=== PATIENT | male | born 1970 | race Caucasian/White ===

== ENCOUNTER 2018-07-13 07:16 | Observation (INO) | payer BC, OTHER ==
[~2018-07-13] VITALS: Ht 170.2 cm; Wt 68.4 kg
[2018-07-13] MEDS ORDERED: ASPIRIN 81 MG TABLET CHEW PO ONE (07:30)
[2018-07-13] MEDS ORDERED: SODIUM CHLORIDE FLUSH 10ML SYR IVF ONE (07:30)
[2018-07-13] MEDS ORDERED: NITROGLYCERIN SINGLE TAB 0.4 MG SL PRN (07:30)
[2018-07-13] MEDS ORDERED: ASPIRIN 81 MG TABLET CHEW ONE (07:32)
[2018-07-13] MEDS ORDERED: NITROGLYCERIN SINGLE TAB 0.4 MG SL ONE (07:32)
[2018-07-13 07:50] LABS: BASOPHILS # (AUTO) 0.02 x10^3/uL (0-0.1); BASOPHILS % (AUTO) 0 % (0-1); EOSINOPHILS # (AUTO) 0.21 x10^3/uL (0-0.4); EOSINOPHILS % (AUTO) 4 % (1-7); LYMPHOCYTES # (AUTO) 1.39 x10^3/uL (1-3.4); LYMPHOCYTES % (AUTO) 28 % (22-44); MD NO; MEAN CORPUSCULAR HEMOGLOBIN 30.7 pg (27.5-34.5); MEAN CORPUSCULAR HGB CONC 34.8 g/dL (33.2-36.2); MEAN CORPUSCULAR VOLUME 88.3 fL (81-97); MEAN PLATELET VOLUME 7.5 fL (7.4-10.4); MONOCYTES # (AUTO) 0.41 x10^3/uL (0.2-0.8); MONOCYTES % (AUTO) 8 % (2-9); NEUTROPHILS # (AUTO) 3.02 x10^3/uL (1.8-6.8); NEUTROPHILS % (AUTO) 60 % (42-75); PLATELET COUNT 289 x10^3/uL (130-400); RED BLOOD COUNT 4.94 x10^6/uL (4.38-5.82); RED CELL DISTRIBUTION WIDTH 13.2 % (9.4-14.8)
[2018-07-13] MEDS ORDERED: NITROGLYCERIN OINT 2%, 1GM TP ONE ×2 (07:58→08:00)
[2018-07-13] MEDS ORDERED: PLEASE ENTER ALLERGIES MC SCH (08:00)
[2018-07-13 08:01] LABS: ALBUMIN 4.1 g/dL (3.4-5.0); ANION GAP 6 mmol/L (5-15); CALCIUM 9.2 mg/dL (8.5-10.1); CHLORIDE 109 mmol/L (98-107); CREATININE 1.15 mg/dL (0.7-1.3)
[2018-07-13 08:05] LABS: ALKALINE PHOSPHATASE 52 U/L (45-117); BILIRUBIN,TOTAL 0.5 mg/dL (0.2-1.0); TOTAL PROTEIN 7.7 g/dL (6.4-8.2); TROPONIN I < 0.015 ng/mL (0.000-0.045)
[2018-07-13 08:06] LABS: ALANINE AMINOTRANSFERASE 23 U/L (12-78)
[2018-07-13] MEDS ORDERED: OMNIPAQUE 350 MG/ML, 100ML BOTTLE ONE (09:44)
[2018-07-13 11:43] VITALS: BP 104/68
[2018-07-13] MEDS ORDERED: KETOROLAC 30 MG/1 ML IV PRN (12:30)
[2018-07-13] MEDS ORDERED: ONDANSETRON 2MG/ML, 2ML IVPush PRN (12:30)
[2018-07-13] MEDS ORDERED: ACETAMINOPHEN 325 MG TABLET PO PRN (12:30)
[2018-07-13] MEDS ORDERED: GUAIFENESIN/COD200MG-20MG/10ML LIQUID PO PRN (12:30)
[2018-07-13] MEDS ORDERED: NITROGLYCERIN 0.4 MG BOTTLE (25 TABS) SL PRN (12:30)
[2018-07-13] MEDS ORDERED: DOCUSATE 100 MG CAPSULE PO PRN (12:30)
[2018-07-13] MEDS ORDERED: TRAZODONE 50MG TABLET PO PRN (12:30)
[2018-07-13] MEDS ORDERED: hydrALAzine 20 MG/ML, 1ML IVPush PRN (12:30)
[2018-07-13 13:11] VITALS: BP 114/67
[2018-07-13 14:39] LABS: TROPONIN I < 0.015 ng/mL (0.000-0.045)
[2018-07-13 15:13] VITALS: BP 101/64
[2018-07-13 15:15] VITALS: BP 103/66
[2018-07-13 15:17] VITALS: BP 119/74
[2018-07-13 20:00] VITALS: BP 122/75
[2018-07-13 20:07] LABS: TROPONIN I < 0.015 ng/mL (0.000-0.045)
[2018-07-13] MEDS ORDERED: QUETIAPINE 25MG TABLET PO SCH (21:00)
[2018-07-14 02:00] VITALS: BP 112/65
[2018-07-14 05:51] LABS: ANION GAP 5 mmol/L (5-15); CALCIUM 8.7 mg/dL (8.5-10.1); CHLORIDE 111 mmol/L (98-107)
[2018-07-14 05:52] LABS: BASOPHILS # (AUTO) 0.02 x10^3/uL (0-0.1); BASOPHILS % (AUTO) 0 % (0-1); EOSINOPHILS # (AUTO) 0.36 x10^3/uL (0-0.4); EOSINOPHILS % (AUTO) 6 % (1-7); LYMPHOCYTES % (AUTO) 23 % (22-44); MD NO; MEAN CORPUSCULAR HEMOGLOBIN 30.6 pg (27.5-34.5); MEAN CORPUSCULAR HGB CONC 34.4 g/dL (33.2-36.2); MEAN CORPUSCULAR VOLUME 88.9 fL (81-97); MONOCYTES # (AUTO) 0.42 x10^3/uL (0.2-0.8); MONOCYTES % (AUTO) 7 % (2-9); NEUTROPHILS # (AUTO) 3.79 x10^3/uL (1.8-6.8); NEUTROPHILS % (AUTO) 63 % (42-75); PLATELET COUNT 252 x10^3/uL (130-400); RED BLOOD COUNT 4.54 x10^6/uL (4.38-5.82); RED CELL DISTRIBUTION WIDTH 13.3 % (9.4-14.8)
[2018-07-14 06:03] LABS: CHOL/HDL RATIO 3.7; CHOLESTEROL, TOTAL 165 mg/dL (140-239); CREATININE 1.09 mg/dL (0.7-1.3); HDL CHOL % 27 % (26-37); HDL CHOLESTEROL (DIRECT) 45 mg/dL (40-60); LDL CHOLESTEROL,CALCULATED 90 mg/dL (54-169); TRIGLYCERIDES 152 mg/dL (50-200); VLDL CHOLESTEROL 30 mg/dL (0-25)
[2018-07-14 08:33] VITALS: BP 116/73
[2018-07-14] MEDS ORDERED: REGADENOSON 0.4 MG/5 ML SYRINGE ONE (08:44)
[2018-07-14] MEDS ORDERED: SERTRALINE 50MG TABLET PO SCH (09:00)
[2018-07-14] MEDS ORDERED: SERTRALINE 100MG TABLET ONE (10:36)
[2018-07-14 12:15] VITALS: BP 104/68
== END 2018-07-14 14:38 | disposition home or self-care (01) ==
LOC: ED 09:27 → INTOOBSV 10:10 → EDIP 10:10 → 5SO 11:37
PROVIDERS: ADMIT Hospitalist; ATTEND Hospitalist
DX: R07.89 Other chest pain (principal); R06.02 Shortness of breath; F41.1 Generalized anxiety disorder; F32.9 Major depressive disorder, single episode, unspecified; I77.810 Thoracic aortic ectasia; I35.9 Nonrheumatic aortic valve disorder, unspecified; Z80.42 Family history of malignant neoplasm of prostate; Y99.0 Civilian activity done for income or pay
CPT/HCPCS: 36415; 71045; 71275; 74175; 78452; 80048; 80053; 80061; 83690; 83735; 84443; 84484; 85025; 93005; 93017; 99285; A9502; C9898; G0378; J2785; Q9967

== ENCOUNTER → 2021-06-09 | Outpatient (CLI) | payer OTHER | END | disposition home or self-care (01) | LOC: CFH 14:38 | PROVIDERS: ATTEND Internal Medicine Cardiovascular Disease | DX: I08.8 Other rheumatic multiple valve diseases (principal) | CPT/HCPCS: 93306; 93356 ==

== ENCOUNTER → 2021-06-30 | Outpatient (CLI) | payer OTHER ==
[~2021-06-30] MED LIST: OMNIPAQUE 350 MG/ML, 100ML BOTTLE ONE
== END | disposition home or self-care (01) ==
LOC: CFH 08:57
PROVIDERS: ATTEND Internal Medicine Cardiovascular Disease
DX: I77.810 Thoracic aortic ectasia (principal)
CPT/HCPCS: 71275; Q9967